=== PATIENT | female | born 1995 | race Caucasian/White ===

== ENCOUNTER 2021-10-02 23:46 | Emergency (ER) | payer OTHER ==
[~2021-10-02] VITALS: Ht 157.5 cm; Wt 81.2 kg
--- NOTE | 2021-10-03 00:05 | NUR ---
PT TAKEN TO BED 9
[2021-10-03 00:06] VITALS: BP 112/75
--- NOTE | 2021-10-03 00:20 | NUR ---
RECEIVED IN BED 8 WITH C/O GENERALIZED ABD PAIN, NAUSEA , AND DIARRHEA FOR 3 DAYS. PT STATES HISTORY OF GASTRIC SLEEVE 1 YEAR AGO
--- NOTE | 2021-10-03 00:28 | NUR ---
Dr. Dickerson examining patient.
[2021-10-03] MEDS ORDERED: NACL 0.9% 1,000 ML IV ONE (00:45)
[2021-10-03] MEDS ORDERED: ONDANSETRON 4 MG/2 ML VIAL IVP ONE (00:45)
[2021-10-03 01:28] LABS: APPEARANCE,URINE CLEAR (CLEAR); BILIRUBIN,URINE NEGATIVE (NEGATIVE); BLOOD, URINE 1+ (NEGATIVE); COLOR,URINE YELLOW (YELLOW); LEUKOCYTE ESTERASE ,URINE NEGATIVE (NEGATIVE); NITRITE, URINE NEGATIVE (NEGATIVE); UGLUCOSE NEGATIVE (NEGATIVE)
[2021-10-03 01:44] LABS: RBC,URINE 0-5 /HPF (0-5); WBC,URINE 0-5 /HPF (0-5)
[2021-10-03] MEDS ORDERED: ONDA-188 SL (02:18)
[2021-10-03 02:32] VITALS: BP 112/75
== END 2021-10-03 02:32 | disposition home or self-care (01) ==
LOC: MED 23:46
DX: K52.9 Noninfective gastroenteritis and colitis, unspecified (principal); J45.909 Unspecified asthma, uncomplicated; Z79.899 Other long term (current) drug therapy
CPT/HCPCS: 81001; 81025; 96361; 96374; 99283; J2405; J7030